=== PATIENT | female | born 1960 | race Asian ===

== ENCOUNTER 2020-04-13 15:25 | Emergency (ER) | payer BC, MEDICARE ==
[2020-04-13] MEDS ORDERED: ONDANSETRON HCL INJ/PF 4 MG/2 ML SDV IV ONE ×2 (15:46→16:07)
--- NOTE | 2020-04-13 15:47 | ER Document Report ---
ED Medical Screen (RME) - General Chief Complaint: Abdominal Pain Stated Complaint: ABDOMINAL PAIN Time Seen by Provider: 04/13/20 15:41 Information source: Patient Notes: Patient presents complaining of sudden onset of right-sided abdominal pain. Patient states the pain is radiating into the chest and to the middle of her abdomen. Patient reports nausea without vomiting or diarrhea. Patient denies any fever. Patient denies any urinary symptoms or cough. I have greeted and performed a rapid initial assessment of this patient. A comprehensive ED assessment and evaluation of the patient, analysis of test res ults and completion of the medical decision making process will be conducted by additional ED providers. Physical Exam - Vital signs Vitals: Temp Pulse Resp BP Pulse Ox 98.6 F 59 L 20 152/68 H 100 04/13/20 15:31 04/13/20 15:31 04/13/20 15:31 04/13/20 15:31 04/13/20 15:31 - General General appearance: Alert, Anxious In distress: Mild Notes: Patient holding abdomen, occasionally moaning, patient with right upper qu adrant, epigastric tenderness. I have greeted and performed a rapid initial assessment of this patient. A comprehensive ED assessment and evaluation of the patient, analysis of test results and completion of the medical decision making process will be conducted by additional ED providers. Course - Vital Signs Vital signs: Temp Pulse Resp BP Pulse Ox 98.6 F 59 L 20 152/68 H 100 04/13/20 15:31 04/13/20 15:31 04/13/20 15:31 04/13/20 15:31 04/13/20 15:31
[2020-04-13 16:42] LABS: ABSOLUTE BASOPHILS # (AUTO) 0.1 10^3/uL (0.0-0.2); ABSOLUTE LYMPHOCYTES (AUTO) 2.8 10^3/uL (0.5-4.7); ABSOLUTE MONOCYTES (AUTO) 0.5 10^3/uL (0.1-1.4); BASOPHILS % (AUTO) 0.6 % (0-2); EOSINOPHILS % (AUTO) 0.5 % (0-6); HEMATOCRIT 39.1 % (36.0-47.0); HEMOGLOBIN 13.6 g/dL (12.0-15.5); LYMPHOCYTES % (AUTO) 33.5 % (13-45); MEAN CORPUSCULAR HEMOGLOBIN 30.1 pg (27.0-33.4); MEAN CORPUSCULAR HGB CONC 34.8 g/dL (32.0-36.0); MEAN CORPUSCULAR VOLUME 86 fl (80-97); MONOCYTES % (AUTO) 6.1 % (3-13); PLATELET COUNT 274 10^3/uL (150-450); RED BLOOD COUNT 4.52 10^6/uL (3.72-5.28); RED CELL DISTRIBUTION WIDTH 12.8 % (11.5-14.0); SEGMENTED NEUTROPHILS % (AUTO) 59.3 % (42-78); TOTAL CELLS COUNTED % (AUTO) 100 %; WHITE BLOOD COUNT 8.5 10^3/uL (4.0-10.5)
[2020-04-13 16:45] LABS: APPEARANCE,URINE CLEAR; BILIRUBIN,URINE NEGATIVE (NEGATIVE); COLOR,URINE STRAW; GLUCOSE, URINE NEGATIVE (NEGATIVE); KETONES,URINE TRACE mg/dL (NEGATIVE); LEUKOCYTE ESTERASE,URINE NEGATIVE (NEGATIVE); NITRITE,URINE NEGATIVE (NEGATIVE); PROTEIN,URINE 30 mg/dL (NEGATIVE); URINE SPECIFIC GRAVITY 1.011; UROBILINOGEN,URINE NEGATIVE mg/dL (<2.0)
[2020-04-13 16:56] LABS: ALBUMIN 4.6 g/dL (3.5-5.0); ALKALINE PHOSPHATASE 77 U/L (38-126); ANION GAP 10 (5-19); ASPARTATE AMINO TRANSFERASE 26 U/L (14-36); BILIRUBIN,DIRECT 0.2 mg/dL (0.0-0.4); BILIRUBIN,TOTAL 0.4 mg/dL (0.2-1.3); BLOOD UREA NITROGEN 8 mg/dL (7-20); CALCIUM 9.6 mg/dL (8.4-10.2); CARBON DIOXIDE 26 mmol/L (22-30); CHLORIDE 101 mmol/L (98-107); GLUCOSE 143 mg/dL (75-110); POTASSIUM 4.6 mmol/L (3.6-5.0); TOTAL PROTEIN 7.3 g/dL (6.3-8.2)
--- NOTE | 2020-04-13 16:56 | RADIOLOGY REPORT (SQ) ---
EXAM DESCRIPTION: ACUTE ABDOMEN SERIES IMAGES COMPLETED DATE/TIME: 04/13/2020 4:49 pm REASON FOR STUDY: RUQ, epig pain COMPARISON: None. NUMBER OF VIEWS: Three views. TECHNIQUE: Frontal chest, supine abdomen and upright/decubitus abdomen radiographic images acquired. LIMITATIONS: None. FINDINGS: CHEST: Lungs clear of infiltrates. FREE AIR: None. No abnormal gas collections. BOWEL GAS PATTERN: Nonobstructive pattern. No dilated loops or air fluid levels. CALCIFICATIONS: No suspicious calcifications. HARDWARE: Surgical clips. SOFT TISSUES: No gross mass or suggestion of organomegaly. BONES: No acute fracture. No worrisome bone lesions. OTHER: No other significant finding. IMPRESSION: NO RADIOGRAPHIC EVIDENCE FOR ACUTE ABDOMINAL DISEASE. TECHNICAL DOCUMENTATION: JOB ID: [id number] 2010 [employer]- All Rights Reserved Reading location - IP/workstation name: [email or web address]
[2020-04-13] MEDS ORDERED: MORPHINE SULFATE 10 MG/ML INJ IV ONE (17:27)
--- NOTE | 2020-04-13 17:36 | ER Document Report ---
ED GI/ - Related Data Home Medications: bhaktialta <JACOBO MULLEN - Last Filed: 04/13/20 19:25> <SADIE REDDY - Last Filed: 04/13/20 21:44> - General Chief Complaint: Abdominal Pain Stated Complaint: ABDOMINAL PAIN Time Seen by Provider: 04/13/20 15:41 Notes: CHIEF COMPLAINT: Upper abdominal pain with vomiting HPI: 60-year-old female with history of Mary-en-Y gastric bypass in 2011 in [place], cholecystectomy in [place] in 2016, presenting with epigastric abdominal pain and right upper quadrant abdominal pain with multiple episodes of vomiting that began around 11 AM this morning. States the pain seems to radiate into the back. No history of kidney stones. No fever. Denies shortness of breath. ROS: See HPI - all other systems were reviewed and are otherwise negative Constitutional: no fever Eyes: no drainage, no blurred vision ENT: no runny nose, no sore throat Cardiovascular: no chest pain Resp: no SOB, no cough GI: + vomiting, no diarrhea, + abdominal pain : no dysuria Integumentary: no rash Allergy: no hives Musculoskeletal: no extremity pain or swelling Neurological: no numbness/tingling, no weakness MEDICATIONS: I agree with the patient medications as charted by the RN. ALLERGIES: I agree with the allergies as charted by the RN. PAST MEDICAL HISTORY/PAST SURGICAL HISTORY: Reviewed and agree as charted by RN. SOCIAL HISTORY: Reviewed and agree as charted by RN. FAMILY HISTORY: No significant familial comorbid conditions directly related to patient complaint EXAM: Reviewed vital signs as charted by RN. CONSTITUTIONAL: Alert and oriented and responds appropriately to questions. Well-appearing; well-nourished HEAD: Normocephalic; atraumatic EYES: PERRL; Conjunctivae clear, sclerae non-icteric ENT: normal nose; no rhinorrhea; moist mucous membranes; pharynx without lesions noted, no uvula edema or deviation, no tonsillar hypertrophy, phonation normal NECK: Supple without meningismus; non-tender; no cervical lymphadenopathy, no masses CARD: RRR; no murmurs, no clicks, no rubs, no gallops; symmetric distal pulses RESP: Normal chest excursion without splinting or tachypnea; breath sounds clear and equal bilaterally; no wheezes, no rhonchi, no rales, pulse oximetry 97% on room air not hypoxic ABD/GI: Obese, normal bowel sounds; non-distended; soft, moderate tenderness in the right upper quadrant and epigastric region with guarding; no palpable organomegaly or masses. BACK: The back appears normal and is non-tender to palpation, there is no CVA tenderness EXT: Normal ROM in all joints; non-tender to palpation; no cyanosis, no effusions, no edema SKIN: Normal color for age and race; warm; dry; good turgor; no acute lesions noted NEURO: Moves all extremities equally; Motor and sensory function intact PSYCH: The patient's mood and manner are appropriate. Grooming and personal hygiene are appropriate. MDM: EKG normal sinus rhythm with a ventricular rate of 64. W[place] 192. QT 420. QTc 434. Low voltage noted but otherwise normal EKG. Interpreted by emergency department physician. 60-year-old female presenting with right upper quadrant and epigastric pain, prior history of cholecystectomy as well as Mary-en-Y gastric bypass. Will obtain baseline screening labs, plan for CT abdomen pelvis with IV and oral contrast given her gastric bypass history (JACOBO MULLEN) - Related Data Allergies/Adverse Reactions: No Known Allergies Allergy (Verified 04/13/20 16:47) Past Medical History - General Information source: Patient - Social History Smoking Status: Never Smoker Chew tobacco use (# tins/day): No Frequency of alcohol use: None Drug Abuse: None Patient has homicidal ideation: No <JACOBO MULLEN - Last Filed: 04/13/20 19:25> - General Information source: Patient - Social History Smoking Status: Never Smoker Frequency of alcohol use: None Drug Abuse: None Lives with: Family Family History: Reviewed & Not Pertinent <SADIE REDDY - Last Filed: 04/13/20 21:44> Physical Exam - Vital signs Vitals: Temp Pulse Resp BP Pulse Ox 98.6 F 59 L 20 152/68 H 100 04/13/20 15:31 04/13/20 15:31 04/13/20 15:31 04/13/20 15:31 04/13/20 15:31 Course - Laboratory Result Diagrams: 04/13/20 16:00 04/13/20 16:00 <JACOBO MULELN - Last Filed: 04/13/20 19:25> - Laboratory Result Diagrams: 04/13/20 16:00 04/13/20 16:00 <SADIE REDDY - Last Filed: 04/13/20 21:44> - Re-evaluation Re-evalutation: 04/13/20 19:[address] imaging as patient has interval contrast. Report was given to oncoming shift following disposition (JACOBO MULLEN) 04/13/20 21:30 CAT scan with no overt abnormal findings although does show narrowing of the common bile duct. No overt obstruction. In addition to this bilirubin, LFTs, alk phos, lipase are all normal. Patient has had no symptoms since her initial pain medication dose hours ago, she has tolerated p.o. without any difficulty, she has no complaints on my reevaluation. As result I have a low suspicion of obstruction or acute abdomen. I discussed with patient. Patient states she is visiting from [place] and she is going home in a couple of days, she states that she has had an endoscopy in the past, she states that she will follow-up with them, she states she is ready to go home but she will return if she worsens, we discussed treatment options and patient will be provided with some symptom management, Carafate, and she will return if she worsens. Provided with a copy of CAT scan report on request. Patient states appreciation and agreement. Stable, well-appearing, asymptomatic at time of discharge. (SADIE REDDY) - Vital Signs Vital signs: Temp Pulse Resp BP Pulse Ox 97.8 F 69 17 142/76 H 97 04/13/20 20:09 04/13/20 20:09 04/13/20 20:09 04/13/20 20:09 04/13/20 20:09 - Laboratory Laboratory results interpreted by me: 04/13/20 04/13/20 04/13/20 16:00 16:00 17:49 Glucose 143 H POC Glucose 168 H Urine Protein 30 H Urine Ketones TRACE H Discharge <JACOBO MULLEN - Last Filed: 04/13/20 19:25> <SADIE REDDY - Last Filed: 04/13/20 21:44> - Discharge Clinical Impression: Upper abdominal pain Condition: Stable Disposition: HOME, SELF-CARE Instructions: Oral Narcotic Medication ([facility]) Additional Instructions: The CAT scan and work-up today did not show any obvious findings. I suspect the pain you are having is coming from inside your upper gastrointestinal tract, probably gastritis. I recommend the Carafate as prescribed, you can also take [id number] famotidine, take Zofran if needed for nausea, take Tylenol or the Roxobel if needed for pain with the precautions. Avoid NSAIDs (ibuprofen, Aspirin, etc), alcohol, smoking, caffeine, spicy food. Start with clear fluids, progress to bland diet. I recommend that you follow-up closely with gastroenterology as we discussed. Return if you worsen including uncontrolled vomiting, vomiting blood, black sto ols, severe pain, fever of 100.4 or greater, or any other concerning or worsening symptoms. Prescriptions: Sucralfate [Carafate 1 gm Tablet] 1 gm PO QID #20 tablet Hydrocodone/Acetaminophen [Roxobel 5-325 mg Tablet] 1 - 2 tab PO Q6H PRN #12 tablet PRN Reason: Ondansetron [Zofran Odt 4 mg Tablet] 1 - 2 tab PO Q4H PRN #15 tab.rapdis PRN Reason: For Nausea/Vomiting
--- NOTE | 2020-04-13 19:25 | EKG REPORT ---
SEVERITY:- BORDERLINE ECG - SINUS RHYTHM LOW VOLTAGE THROUGHOUT : Confirmed by: Sahara Jameson MD 13-Apr-2020 19:24:50
--- NOTE | 2020-04-13 20:58 | RADIOLOGY REPORT (SQ) ---
CLINICAL INDICATION: upper abd pain, hx caio en y 2001 in [place]. . TECHNIQUE: Contrast enhanced spiral axial CT imaging was obtained of the abdomen and pelvis with multiplanar reconstructions. This exam was performed according to our departmental dose-optimization program, which includes automated exposure control, adjustment of the mA and/or kV according to patient size and/or use of iterative reconstruction techniques. COMPARISON: None available. CORRELATION: None. FINDINGS: Abdomen: The lung bases are grossly clear. The heart is of normal size. No evidence of pleural or pericardial fluid. The liver is homogeneous. Mild fatty infiltration subtle focal fatty sparing in the gallbladder fossa. The gallbladder appears nondistended. There is dilatation of the extrahepatic common bile duct. This reaches maximum cross-sectional dimension of 1.3 cm. The pancreas demonstrates mild prominence of the pancreatic duct but is otherwise unremarkable. The spleen is unremarkable. The adrenals are unremarkable. The kidneys appear grossly normal without evidence of urolithiasis or hydronephrosis. Small calcification lower pole the right kidney, likely vascular There is no evidence of free air. No free fluid. No bulky adenopathy. Abdominal aorta is nonaneurysmal. Pelvis: The bowel is nonobstructed. Postsurgical change to the stomach. Please correlate with history.. Pelvic contents are unremarkable. The appendix is not seen. No pericecal inflammatory changes are appreciated.. Visualized bones are unremarkable. IMPRESSION: Hepatic and extrahepatic biliary ductal dilatation. The cause for which is not directly seen but the common bile duct does not appear to taper normally within the pancreatic head. It appears to end rather abruptly. Mild hepatic steatosis. Gastroenterology follow-up may be of benefit
[2020-04-13] MEDS ORDERED: SUCRALFATE 1 GM TABLET PO ONE (21:23)
[2020-04-13] MEDS ORDERED: HYDROCODONE/ACETAMINOPHEN 5-325 MG (6 TAB/ER DISP) PO PRN (21:23)
[2020-04-13] MEDS ORDERED: ONDANSETRON ODT 4 MG TAB (6 TAB/ER DISP) PO PRN (21:24)
[2020-04-13 22:44] VITALS: BP 131/72
== END 2020-04-13 22:43 | disposition home or self-care (01) ==
LOC: ER 15:25
DX: R10.10 Upper abdominal pain, unspecified (principal); R10.13 Epigastric pain; R11.10 Vomiting, unspecified; Z98.84 Bariatric surgery status
CPT/HCPCS: 93005; 99285; 96374; 96375; 36415; 82962; 83690; 85025; 80053; 81001; 84484; 74022; 74177; 93010; J2270; J2405